=== PATIENT | female | born 1995 | race African-American/Black ===

== ENCOUNTER → 2019-06-11 | Outpatient (CLI) | payer BC ==
[2019-06-11 14:49] LABS: BASOPHILS % 0.5 % (0.0-2.0); HEMATOCRIT. 37.2 % (36.0-48.0); HEMOGLOBIN. 12.5 g/dL (12.0-16.0); LYMPHOCYTES % 35.1 % (20.0-50.0); MEAN CORPUSCULAR HEMOGLOBIN 30.7 pg (28.0-32.0); MEAN CORPUSCULAR VOLUME 91.1 fL (81.0-99.0); MONOCYTES % 8.2 % (2.0-8.0); NEUTROPHILS % 55.2 % (40.0-76.0); PLATELET 147 x1000/uL (130-400); RED BLOOD CELL COUNT 4.08 mill/uL (4.2-5.4); RED CELL DISTRIBUTION WIDTH 13.9 % (11.6-14.6)
[2019-06-11 14:51] LABS: CHLORIDE 106 mEq/L (98-107)
[2019-06-11 15:00] LABS: LDL CHOLESTEROL 115 mg/dL (5-100); PHOSPHORUS 2.7 mg/dL (2.5-4.9)
[2019-06-11 15:02] LABS: HDL CHOLESTEROL 56 mg/dL (40-59)
[2019-06-11 15:03] LABS: TOTAL IRON BINDING CAPACITY 441 ug/dL (250-450)
[2019-06-11 15:05] LABS: T4 FREE 0.89 ng/dL (0.76-1.46)
[2019-06-11 15:10] LABS: T4 FREE 0.88 ng/dL (0.76-1.46)
[2019-06-11 16:21] LABS: HEPATITIS B SURFACE ANTIGEN NEGATIVE
[2019-06-11 16:47] LABS: HEPATITIS A AB IGM NEGATIVE (NEGATIVE)
[2019-06-11 22:06] LABS: CLARITY URINE CLOUDY (CLEAR); COLOR URINE YELLOW (YELLOW); KETONES URINE TRACE (NEGATIVE); LEUKOCYTE ESTERASE URINE NEGATIVE (NEGATIVE); NITRITE URINE NEGATIVE (NEGATIVE); OCCULT BLOOD URINE NEGATIVE (NEGATIVE); PROTEIN URINE NEGATIVE (NEGATIVE); SPECIFIC GRAVITY URINE 1.036 (1.005-1.030)
[2019-06-13 05:13] LABS: VITAMIN D 25-OH 14.7 ng/mL (30.0-100.0)
[2019-06-13 10:02] LABS: C REACTIVE PROTEIN QUANT 1.3 mg/L (0.0-3.0)
[2019-06-14 09:11] LABS: HIV SCREEN 4G Non Reactive (Non Reactive); PROGESTERONE 3.3 ng/mL (.); TRANSFERRIN 295 mg/dL (200-370)
[2019-06-14 16:53] LABS: C REACTIVE PROTEIN QUANT 0.9 mg/L (0.0-3.0)
[2019-06-15 04:13] LABS: CHLAMYDIA TRACHOMATIS NAA Negative (Negative); NEISSERIA GONORRHOEAE NAA Negative (Negative)
== END | disposition home or self-care (01) ==
LOC: LAB 11:26
PROVIDERS: ATTEND Internal Medicine
DX: Z00.00 Encounter for general adult medical examination without abnormal findings (principal); Z11.3 Encounter for screening for infections with a predominantly sexual mode of transmission; N39.0 Urinary tract infection, site not specified; D64.9 Anemia, unspecified; E78.00 Pure hypercholesterolemia, unspecified; D68.9 Coagulation defect, unspecified; I10 Essential (primary) hypertension; R60.9 Edema, unspecified; R10.9 Unspecified abdominal pain; R94.5 Abnormal results of liver function studies; N95.9 Unspecified menopausal and perimenopausal disorder; R87.1 Abnormal level of hormones in specimens from female genital organs; R53.83 Other fatigue
CPT/HCPCS: 36415; 80061; 80076; 82024; 82248; 82306; 82533; 82626; 83001; 83540; 83550; 84100; 84144; 84402; 84403; 84439; 84443; 84466; 84481; 84550; 85651; 86140; 86592; 86677; 86694; 86705; 86709; 86803; 87340; 87389; 87491; 87591